=== PATIENT | female | born 1965 | race African-American/Black ===

== ENCOUNTER 2016-08-08 18:58 | Emergency (ER) | payer SELFPAY ==
[~2016-08-08] VITALS: Ht 172.7 cm; Wt 95.0 kg
[~2016-08-08 18:58] MED LIST: ADVAIR 250/28 DISKUS IH; ALBUTEROL0.09 MG/A1 IH; FLEXERIL10 MG PO; LORTAB 5/500 501 TAB PO; LORTAB 7.5/5001 TAB PO; PHENERGAN W/CO120 M1 PO; PREDNISONE20 MG PO; TUSS PO; ZITHROMAX Z PA250 MG PO; ZYRTEC 10MG10 MG
[2016-08-08 19:02] VITALS: TEMP 98.9
[2016-08-08 19:42] LABS: BASO # 0.1 (0.0-0.2); BASO % 0.4 % (0.0-2.0); EOS # 0.2 (0.0-0.7); EOS % 1.5 % (0-4.0); GRAN # 7.7 (1.4-6.5); GRAN % 66.9 % (42.2-75.2); LYMPH # 2.3 (1.2-3.4); LYMPH % 19.4 % (20.0-51.0); MEAN CELL VOLUME 73 fl (80.0-100.0); MEAN CORPUSCULAR HGB CONC 29 g/dl (33.0-37.0); MONO # 1.3 (0.1-0.6); MONO % 11.5 % (1.7-9.3); PLATELET COUNT 399 K/mm3 (130-400); RED BLOOD COUNT 4.23 M/mm3 (4.10-5.30); REDCELL DISTRIBUTION WIDTH-CV 19.6 % (11.5-14.5); WHITE BLOOD COUNT 11.6 K/mm3 (4.8-10.8)
[2016-08-08 19:43] LABS: HEMATOCRIT 30.9 % (37.0-47.0); MEAN CORPUSCULAR HEMOGLOBIN 21 pg (27.0-31.0)
[2016-08-08 19:54] LABS: ADJUSTED CALCIUM 9.2 mg/dL (8.4-10.2); ALANINE AMINOTRANSFERASE 22 U/L (9-52); ALBUMIN 4.3 gm/dL (3.5-5.0); ALKALINE PHOSPHATASE 102 U/L (50-136); ANION GAP 13 mmol/L (7-16); BILIRUBIN,TOTAL 1.4 mg/dL (0.0-1.0); BLOOD UREA NITROGEN 12 mg/dL (7-17); C-REACTIVE PROTEIN 6.6 mg/dL (0.0-0.9); CALCIUM 9.4 mg/dL (8.4-10.2); CARBON DIOXIDE 23 mmol/L (22-30); CHLORIDE 101 mmol/L (98-107); CREATININE, serum 0.71 mg/dL (0.52-1.25); GLUCOSE 106 mg/dL (74-106); POTASSIUM 3.9 mmol/L (3.4-5.0); SODIUM 136 mmol/L (137-145); TOTAL PROTEIN 9.1 gm/dL (6.4-8.2)
[2016-08-08 20:07] LABS: TROPONIN-I < 0.012 ng/mL (0.000-0.034)
[2016-08-08 20:10] LABS: ERYTHROCYTE SEDIMENTATION RATE 44 mm/hr (0-20)
[2016-08-08 21:15] VITALS: BP 117/74; PULSE 92
== END 2016-08-08 21:24 | disposition home or self-care (01) ==
LOC: COL.ER 18:58
PROVIDERS: Emergency Medicine
DX: I31.9 Disease of pericardium, unspecified (principal); J45.909 Unspecified asthma, uncomplicated
CPT/HCPCS: J1885; J7030

== ENCOUNTER 2016-08-21 20:22 | Emergency (ER) | payer SELFPAY ==
[~2016-08-21] VITALS: Ht 170.2 cm; Wt 95.0 kg
[2016-08-21] MEDS ORDERED: RT ADVAIR 228 DISKUS IH (20:52)
[2016-08-21 21:19] LABS: MEAN CELL VOLUME 72 fl (80.0-100.0); MEAN CORPUSCULAR HGB CONC 30 g/dl (33.0-37.0); MEAN PLATELET VOLUME 10.7 fl (7.4-10.4); PLATELET COUNT 595 K/mm3 (130-400); RED BLOOD COUNT 3.43 M/mm3 (4.10-5.30); REDCELL DISTRIBUTION WIDTH-CV 20.4 % (11.5-14.5)
[2016-08-21 21:21] LABS: WHITE BLOOD COUNT 22.1 K/mm3 (4.8-10.8)
[2016-08-21 21:22] LABS: HEMATOCRIT 24.7 % (37.0-47.0); HEMOGLOBIN 7.3 g/dl (12.5-16.0); MEAN CORPUSCULAR HEMOGLOBIN 21 pg (27.0-31.0)
[2016-08-21 21:29] LABS: BASO % 0.2 % (0.0-2.0); GRAN # 18.7 (1.4-6.5); LYMPH # 0.9 (1.2-3.4); MONO # 1.9 (0.1-0.6); MONO % 8.9 % (1.7-9.3)
[2016-08-21 21:32] LABS: ADJUSTED CALCIUM 9.2 mg/dL (8.4-10.2); ALANINE AMINOTRANSFERASE 39 U/L (9-52); ALBUMIN 3.5 gm/dL (3.5-5.0); ALKALINE PHOSPHATASE 258 U/L (50-136); ANION GAP 15 mmol/L (7-16); BILIRUBIN,TOTAL 2.6 mg/dL (0.0-1.0); BLOOD UREA NITROGEN 13 mg/dL (7-17); CALCIUM 8.8 mg/dL (8.4-10.2); CARBON DIOXIDE 25 mmol/L (22-30); CHLORIDE 100 mmol/L (98-107); CREATININE, serum 0.79 mg/dL (0.52-1.25); GLUCOSE 145 mg/dL (74-106); LIPASE 34 U/L (23-300); MAGNESIUM 2.1 mg/dL (1.6-2.3); POTASSIUM 3.4 mmol/L (3.4-5.0); SODIUM 140 mmol/L (137-145); TOTAL PROTEIN 8.2 gm/dL (6.4-8.2)
[2016-08-21 21:40] LABS: INFLUENZA B NEGATIVE
[2016-08-21 21:45] LABS: B-TYPE NATRIURETIC PEPTIDE 233 pg/mL (0-125)
[2016-08-21 21:52] LABS: TROPONIN-I < 0.012 ng/mL (0.000-0.034)
[2016-08-21 23:16] LABS: ERYTHROCYTE SEDIMENTATION RATE 113 mm/hr (0-20)
[2016-08-21 23:40] VITALS: TEMP 98.1
[2016-08-21 23:56] LABS: C-REACTIVE PROTEIN 28.5 mg/dL (0.0-0.9)
[2016-08-22] VITALS: BP 91/63; PULSE 115
== END 2016-08-22 | disposition short-term general hospital (02) ==
LOC: COL.ER 20:22
PROVIDERS: Emergency Medicine
DX: I31.9 Disease of pericardium, unspecified (principal); J90 Pleural effusion, not elsewhere classified; D64.9 Anemia, unspecified
CPT/HCPCS: J1956; J2405; J3370; J7030; J7050; Q9967

== ENCOUNTER 2016-10-21 17:00 | Emergency (ER) | payer SELFPAY ==
[~2016-10-21] VITALS: Ht 170.2 cm; Wt 88.6 kg
[~2016-10-21 17:00] MED LIST changes: +RT ADVAIR 228 DISKUS IH
[2016-10-21 17:02] VITALS: BP 137/90; TEMP 98.8
[2016-10-21 18:15] VITALS: PULSE 104
[2016-10-21] MEDS ORDERED: SINGULAIR 110 MG/TAB PO (21:13)
== END 2016-10-21 18:15 | disposition home or self-care (01) ==
LOC: COL.ER 17:00
DX: J45.901 Unspecified asthma with (acute) exacerbation (principal)
CPT/HCPCS: J7512

== ENCOUNTER 2016-12-21 19:51 | Emergency (ER) | payer SELFPAY ==
[~2016-12-21] VITALS: Ht 170.2 cm; Wt 95.0 kg
[~2016-12-21 19:51] MED LIST changes: +SINGULAIR 110 MG/TAB PO
[2016-12-21 19:53] VITALS: TEMP 99.4
[2016-12-21 21:03] LABS: BASO # 0.1 (0.0-0.2); BASO % 0.7 % (0.0-2.0); EOS # 0.5 (0.0-0.7); EOS % 5.5 % (0-4.0); GRAN # 5.3 (1.4-6.5); GRAN % 62.2 % (42.2-75.2); HEMATOCRIT 30.9 % (37.0-47.0); HEMOGLOBIN 9.1 g/dl (12.5-16.0); LYMPH # 2.2 (1.2-3.4); LYMPH % 25.6 % (20.0-51.0); MEAN CELL VOLUME 75 fl (80.0-100.0); MEAN CORPUSCULAR HEMOGLOBIN 22 pg (27.0-31.0); MEAN CORPUSCULAR HGB CONC 29 g/dl (33.0-37.0); MONO # 0.5 (0.1-0.6); MONO % 5.9 % (1.7-9.3); PLATELET COUNT 310 K/mm3 (130-400); RED BLOOD COUNT 4.14 M/mm3 (4.10-5.30); REDCELL DISTRIBUTION WIDTH-CV 16.7 % (11.5-14.5); WHITE BLOOD COUNT 8.4 K/mm3 (4.8-10.8)
[2016-12-21 21:15] LABS: ADJUSTED CALCIUM 9.2 mg/dL (8.4-10.2); ALBUMIN 4.3 gm/dL (3.5-5.0); BILIRUBIN,TOTAL 0.8 mg/dL (0.0-1.0); C-REACTIVE PROTEIN 0.9 mg/dL (0.0-0.9); CALCIUM 9.4 mg/dL (8.4-10.2); CREATININE, serum 0.64 mg/dL (0.52-1.25); POTASSIUM 3.7 mmol/L (3.4-5.0); TOTAL PROTEIN 8.4 gm/dL (6.4-8.2); URIC ACID 4.5 mg/dL (2.5-6.2)
[2016-12-21 21:23] LABS: ERYTHROCYTE SEDIMENTATION RATE 32 mm/hr (0-20)
[2016-12-21] MEDS ORDERED: MOTRIN 800800 MG/TAB PO (21:27)
[2016-12-21] MEDS ORDERED: NORCO 325 MG-51 TAB PO (21:27)
[2016-12-21 21:38] VITALS: BP 135/82; PULSE 98
== END 2016-12-21 21:40 | disposition home or self-care (01) ==
LOC: COL.ER 19:51
PROVIDERS: Emergency Medicine
DX: M25.571 Pain in right ankle and joints of right foot (principal); M19.071 Primary osteoarthritis, right ankle and foot; J44.9 Chronic obstructive pulmonary disease, unspecified
CPT/HCPCS: J1885

== ENCOUNTER 2017-01-10 21:21 | Emergency (ER) | payer SELFPAY ==
[~2017-01-10] VITALS: Ht 170.2 cm; Wt 91.4 kg
[~2017-01-10 21:21] MED LIST changes: +MOTRIN 800800 MG/TAB PO; +NORCO 325 MG-51 TAB PO
[2017-01-10 21:27] VITALS: BP 141/90; TEMP 98.1
[2017-01-10] MEDS ORDERED: PREDNISONE20 MG PO (22:28)
[2017-01-10 22:44] VITALS: PULSE 96
== END 2017-01-10 22:45 | disposition home or self-care (01) ==
LOC: COL.ER 21:21
DX: J45.901 Unspecified asthma with (acute) exacerbation (principal); T48.6X6A Underdosing of antiasthmatics, initial encounter; Z91.120 Patient's intentional underdosing of medication regimen due to financial hardship
CPT/HCPCS: J7512

== ENCOUNTER 2017-09-01 12:52 | Emergency (ER) | payer SELFPAY ==
[~2017-09-01] VITALS: Ht 170.2 cm; Wt 95.5 kg
[2017-09-01 14:14] VITALS: BP 136/79; PULSE 104; TEMP 99.7
[2017-09-01] MEDS ORDERED: DOXYCYCLINE 10100 MG PO (14:24)
== END 2017-09-01 14:37 | disposition home or self-care (01) ==
LOC: COL.ER 12:52
DX: J45.909 Unspecified asthma, uncomplicated (principal); M10.9 Gout, unspecified; Z98.51 Tubal ligation status; Z79.51 Long term (current) use of inhaled steroids

== ENCOUNTER 2019-01-11 11:19 | Emergency (ER) | payer SELFPAY ==
[~2019-01-11] VITALS: Ht 170.2 cm; Wt 95.9 kg
[~2019-01-11 11:19] MED LIST changes: +DOXYCYCLINE 10100 MG PO
[2019-01-11 11:33] VITALS: BP 126/81
[2019-01-11] MEDS ORDERED: GENTAMICIN EYE D5 ML OD (12:02)
[2019-01-11 12:30] VITALS: PULSE 84; TEMP 97.4
== END 2019-01-11 12:30 | disposition home or self-care (01) ==
LOC: COL.ER 11:19
DX: B99.9 Unspecified infectious disease (principal); H10.89 Other conjunctivitis; J45.909 Unspecified asthma, uncomplicated; Z79.51 Long term (current) use of inhaled steroids

== ENCOUNTER 2019-07-02 14:15 | Outpatient (RCR) | payer MEDICAID ==
[~2019-07-02] VITALS: Ht 170.2 cm; Wt 98.1 kg
[2019-07-02] VITALS (12 sets, daily range): BP systolic 104–125; BP diastolic 64–87; PULSE 77–84; TEMP 98.2–99
[~2019-07-02 14:15] MED LIST changes: +GENTAMICIN EYE D5 ML OD
[2019-07-02] MEDS ORDERED: PROAIR HFA0.09 MG/AC IH (15:29)
[2019-07-02] MEDS ORDERED: SINGULAIR 110 MG/TAB PO (15:30)
== END 2019-07-02 20:39 | disposition home or self-care (01) ==
LOC: EUO 14:15
DX: D50.0 Iron deficiency anemia secondary to blood loss (chronic) (principal)
CPT/HCPCS: J7050; P9016

== ENCOUNTER 2019-07-29 16:24 | Inpatient (IN) | payer MEDICAID ==
[~2019-07-29] VITALS: Ht 170.2 cm; Wt 99.1 kg
[~2019-07-29 16:24] MED LIST changes: +PROAIR HFA0.09 MG/AC IH
[2019-08-11] VITALS (13 sets, daily range): BP systolic 117–145; BP diastolic 64–77; PULSE 84–98; TEMP 98.1–99.4
[2019-08-11] MEDS ORDERED: FLONASEALLERGY NS (06:22)
--- NOTE | 2019-08-11 06:27 | NUR ---
TO RM AT 0545- CALL LIGHT IN REACH ALERT ORIENTED X3, VERBALIZED UNDERSTANDING AND SIGNED CONSENT.
--- NOTE | 2019-08-11 06:35 | NUR ---
CALL LIGHT IN REACH DAUGHTER AND FRIEND AT BEDSIDE.
[2019-08-11 08:39] LABS: BASO # 0.1 (0.0-0.2); BASO % 0.7 % (0.0-2.0); EOS # 0.2 (0.0-0.7); EOS % 2.6 % (0-4.0); GRAN # 5.4 (1.4-6.5); GRAN % 67.2 % (42.2-75.2); LYMPH # 1.8 (1.2-3.4); LYMPH % 21.9 % (20.0-51.0); MEAN CELL VOLUME 73 fl (80.0-100.0); MEAN CORPUSCULAR HGB CONC 29 g/dl (33.0-37.0); MONO # 0.6 (0.1-0.6); MONO % 7.2 % (1.7-9.3); PLATELET COUNT 210 K/mm3 (130-400); RED BLOOD COUNT 4.18 M/mm3 (4.10-5.30); REDCELL DISTRIBUTION WIDTH-CV 21.7 % (11.5-14.5)
[2019-08-11 08:40] LABS: HEMATOCRIT 30.5 % (37.0-47.0); HEMOGLOBIN 8.8 g/dl (12.5-16.0); MEAN CORPUSCULAR HEMOGLOBIN 21 pg (27.0-31.0)
--- NOTE | 2019-08-11 11:05 | NUR ---
Report received from Maggie rn surgical.
--- NOTE | 2019-08-11 11:15 | NUR ---
Patient to room 220 via patient bed. VS obtained. Oxygen on [address] Thomas orders. Patient alert and oriented. Patient states pain at 7/10. Resting comfortably at this time. Abd dressing CDI. Patients daughter to room. Updated on POC.
--- NOTE | 2019-08-11 13:05 | NUR ---
Pain meds given with sips of water. Declines crackers at this time. Patient resting comfortably. VSS. O2 decreased to 1 L, pulse ox 99%.
[2019-08-12 00:15] VITALS: BP 125/62; PULSE 93; TEMP 98.4
[2019-08-12 05:00] VITALS: BP 117/81; PULSE 86; TEMP 98.4
[2019-08-12 07:17] VITALS: BP 115/68; BP 116/82; PULSE 82; TEMP 97.8; TEMP 98.6
[2019-08-12 09:29] LABS: BASO % 0.3 % (0.0-2.0); EOS # 0.2 (0.0-0.7); EOS % 1.5 % (0-4.0); GRAN # 9.2 (1.4-6.5); GRAN % 77.3 % (42.2-75.2); LYMPH # 1.2 (1.2-3.4); LYMPH % 10.3 % (20.0-51.0); MEAN CELL VOLUME 75 fl (80.0-100.0); MEAN CORPUSCULAR HGB CONC 29 g/dl (33.0-37.0); MEAN PLATELET VOLUME 11.8 fl (7.4-10.4); MONO # 1.2 (0.1-0.6); MONO % 10.1 % (1.7-9.3); PLATELET COUNT 200 K/mm3 (130-400); REDCELL DISTRIBUTION WIDTH-CV 22.5 % (11.5-14.5)
[2019-08-12 10:10] LABS: HEMATOCRIT 25.5 % (37.0-47.0); HEMOGLOBIN 7.4 g/dl (12.5-16.0); MEAN CORPUSCULAR HEMOGLOBIN 22 pg (27.0-31.0); RED BLOOD COUNT 3.39 M/mm3 (4.10-5.30)
--- NOTE | 2019-08-12 10:53 | NUR ---
Initial visit attempt; Patient resting, Geological Science Teacher left card to let patient know of the availability of spiritual care at our hospital.
[2019-08-12 15:41] VITALS: BP 116/78; PULSE 72; TEMP 97.4
--- NOTE | 2019-08-12 20:00 | NUR ---
Pt up to the shower without complications.
[2019-08-12 20:35] VITALS: BP 113/65; PULSE 99; TEMP 98
[2019-08-13 08:43] VITALS: BP 120/74; PULSE 90; TEMP 98.1
[2019-08-13] MEDS ORDERED: IBU600 MG PO (09:06)
[2019-08-13] MEDS ORDERED: PERCOCET 325 MG1 TA2 PO (09:06)
--- NOTE | 2019-08-13 11:00 | NUR ---
Discharge instructions given to pt, verbalizes understanding. No further questions noted.
== END 2019-08-13 11:15 | disposition home or self-care (01) | DRG 743 ==
LOC: INPTSU 08-11 05:35 → OB 08-11 05:35
PROVIDERS: ADMIT Obstetrics & Gynecology
PROC: 0UT90ZZ Resection of Uterus, Open Approach (ICD-10-PCS; principal; 2019-08-11 07:30)
PROC: 0UT70ZZ Resection of Bilateral Fallopian Tubes, Open Approach (ICD-10-PCS; 2019-08-11 07:30)
PROC: 0UB10ZZ Excision of Left Ovary, Open Approach (ICD-10-PCS; 2019-08-11 07:30)
DX: D25.1 Intramural leiomyoma of uterus (principal); E66.9 Obesity, unspecified; D50.0 Iron deficiency anemia secondary to blood loss (chronic); M19.90 Unspecified osteoarthritis, unspecified site; G89.29 Other chronic pain; M54.9 Dorsalgia, unspecified; N85.2 Hypertrophy of uterus; J45.909 Unspecified asthma, uncomplicated; Z68.34 Body mass index [BMI] 34.0-34.9, adult
CPT/HCPCS: A4314; A9284; J0690; J1885; J2405; J2704; J2710; J3010; J7120

== ENCOUNTER 2019-08-10 09:58 | Outpatient (RCR) | payer MEDICAID ==
--- NOTE | 2019-08-08 10:07 | NUR ---
Report to Bin JohnsonLead Sewage Plant Operator pt ordered to have units on Wednesday, August 09. Orders given to Lead Sewage Plant Operator.
[2019-08-10] VITALS (12 sets, daily range): BP systolic 114–137; BP diastolic 66–82; PULSE 74–95; TEMP 98.1–99
--- NOTE | 2019-08-10 19:22 | NUR ---
PT ARRIVED TO FACILITY THIS AM. 20G IV STARTED TO RT HAND. RECEIVED 2 UNITS LRBC. NO REACTIONS NOTED. PT DENIES SOB, CP, OVIEDO, VERTIGO. NO RASH NOTED. UPON COMPLETION OF BLOOD IV DC'D. NO ISSUES TO SITE. PT TO BE DISCHARGED WITH TEEN GRANDDAUGHTER.
[2019-08-11] MEDS ORDERED: FLONASEALLERGY NS (06:22)
== END 2019-08-10 19:28 | disposition home or self-care (01) ==
LOC: MEDICAL 09:58 → EUO 09:58
DX: D50.8 Other iron deficiency anemias (principal)
CPT/HCPCS: OP; P9016

== ENCOUNTER 2020-10-06 10:24 | Emergency (ER) | payer MEDICAID ==
[~2020-10-06] VITALS: Ht 170.2 cm; Wt 96.8 kg
[~2020-10-06 10:24] MED LIST changes: +FLONASEALLERGY NS; +IBU600 MG PO; +PERCOCET 325 MG1 TA2 PO
[2020-10-06 10:30] VITALS: TEMP 97.6
[2020-10-06 11:05] LABS: COLLECTION METHOD CLEAN CATCH
[2020-10-06 11:33] LABS: MUCOUS Present /lpf; PH 5 (5-8); URINE APPEARANCE Cloudy; URINE BACTERIA Rare /hpf; URINE BILIRUBIN Negative (NEGATIVE); URINE BLOOD Negative (NEGATIVE); URINE COLOR Yellow; URINE GLUCOSE Negative (NEGATIVE); URINE KETONE Negative (NEGATIVE); URINE LEUKOCYTE ESTERASE 2+ (NEGATIVE); URINE NITRATE Negative (NEGATIVE); URINE PROTEIN(semi-quant) Negative (NEGATIVE); URINE RBC 0-2 /hpf; URINE UROBILINOGEN >=4.0 mg/dL (NEGATIVE)
[2020-10-06] MEDS ORDERED: FLEXERIL 1010 MG/TAB PO (11:55)
[2020-10-06 12:00] VITALS: BP 154/94; PULSE 77
== END 2020-10-06 12:01 | disposition home or self-care (01) ==
LOC: COL.ER 10:24
PROVIDERS: Nurse Practitioner
DX: M54.5 Low back pain (principal)
CPT/HCPCS: J1885; J2360

== ENCOUNTER 2021-04-01 03:36 | Emergency (ER) | payer MEDICAID ==
[~2021-04-01] VITALS: Ht 170.2 cm; Wt 100.0 kg
[~2021-04-01 03:36] MED LIST changes: +FLEXERIL 1010 MG/TAB PO
[2021-04-01 03:42] VITALS: TEMP 98.1
[2021-04-01 04:15] VITALS: BP 121/90; PULSE 88
== END 2021-04-01 04:20 | disposition home or self-care (01) ==
LOC: COL.ER 03:36
DX: G44.209 Tension-type headache, unspecified, not intractable (principal)

== ENCOUNTER 2023-08-17 18:26 | Emergency (ER) | payer MEDICAID ==
[~2023-08-17] VITALS: Ht 170.2 cm; Wt 100.0 kg
[2023-08-17] MEDS ORDERED: Amoxicillin 500 MG CAP PO ONE (20:00)
[2023-08-17] MEDS ORDERED: predniSONE 20 MG TAB PO ONE (20:00)
[2023-08-17] MEDS ORDERED: PREDNISONE20 MG PO (20:11)
[2023-08-17] MEDS ORDERED: AMOXICILLIN 50500 MG PO (20:11)
[2023-08-17 20:53] VITALS: BP 156/96; PULSE 80; TEMP 97.2
== END 2023-08-17 20:53 | disposition home or self-care (01) ==
LOC: COL.ER 18:26
DX: J45.901 Unspecified asthma with (acute) exacerbation (principal); K04.7 Periapical abscess without sinus
CPT/HCPCS: J7512